=== PATIENT | female | born 1945 | race Caucasian/White ===

== ENCOUNTER → 2021-11-02 09:31 | Outpatient (CLI) | payer MEDICARE, OTHER, SELFPAY ==
--- NOTE | 2021-11-02 09:37 | DI.US.S_ITS ---
PROCEDURE: US ABDOMEN LIMITED INDICATIONS: LEFT INGUINAL LUMP; HERNIA VS LYMPH NODE TECHNIQUE: Real-time focused scanning was performed of the abdomen, with image documentation. COMPARISON: None. FINDINGS: 3.4 x 3.1 x 3.5 cm irregular cystic mass present within the left groin corresponding to the palpable abnormality which does not change with Valsalva. Doppler assessment demonstrates no internal vascularity. IMPRESSION: Cystic mass corresponding to the palpable abnormality measuring 3.5 cm of unclear etiology. If indicated, CT could be performed for further evaluation. Dictated by: Rex ATKINS Interpreted: Sanjiv Nguyen MD on 11/02/2021 at 13:02 Transcribed by: RUDDY on 11/02/2021 at 13:03 Approved by: Sanjiv Nguyen M.D. on 11/02/2021 at 20:00
== END ==
PROVIDERS: PCP Family Medicine; Referring Provider Obstetrics & Gynecology; Visit Provider Obstetrics & Gynecology
DX: R19.09 Other intra-abdominal and pelvic swelling, mass and lump (principal)
CPT/HCPCS: 76705

== ENCOUNTER → 2021-12-01 10:25 | Outpatient (CLI) | payer MEDICARE, OTHER, SELFPAY ==
--- NOTE | 2021-12-01 10:29 | DI.CT.S_ITS ---
PROCEDURE: CT ABDOMEN PELVIS W CON INDICATIONS: Left groin mass TECHNIQUE: After the administration of oral and intravenous contrast, axial sections were acquired from the lung bases to the pubic symphysis. Coronal and sagittal reformats were performed. For radiation dose reduction, the following was used: automated exposure control, adjustment of mA and/or kV according to patient size. COMPARISON:None. FINDINGS: Image quality: Excellent. Lung bases: Unremarkable. Heart: No significant findings. ABDOMEN: Liver: No intrahepatic biliary ductal dilatation or mass. The liver demonstrates hepatic steatosis. There is a 4 millimeter hypodensity in the right lobe, likely a tiny cyst. Gallbladder: Unremarkable. Biliary ducts: Unremarkable. Pancreas: Unremarkable. Spleen: Unremarkable. Adrenal Glands: Unremarkable. Kidneys and Ureters: Unremarkable. Stomach and Bowel: There is circumferential thickening of the pylorus of the stomach measuring up to 9 mm. This could be due to peristalsis versus neoplasm. Recommend endoscopy. The small bowel loops, and colon are unremarkable. Increased stool consistent with constipation. Peritoneum: No abnormal intraperitoneal fluid. No free air. Ventral Wall: No hernia. Abdominal Nodes: No retroperitoneal or mesenteric adenopathy by size criteria. Vessels: Aorta and inferior vena cava are normal in size. PELVIS: Pelvic Organs: Unremarkable. Bladder: Unremarkable. Pelvic Nodes: No enlarged lymph nodes. Miscellaneous: A fluid containing right inguinal hernia measures 1.5 cm. A fluid containing left inguinal hernia measures 3.9 cm. Bones: Multilevel degenerative changes and facet arthropathy with grade 1 anterolisthesis of L4-5. IMPRESSION: 1. Fluid containing inguinal hernias measuring 1.5 cm on the right and 3.9 cm on the left. 2. Circumferential wall thickening of the pylorus which could simply be peristalsis versus neoplasm. Recommend endoscopy. Dictated by: Benjamin Archer M.D. on 12/01/2021 at 12:43 Approved by: Benjamin Archer M.D. on 12/01/2021 at 12:52
[2021-12-01 10:59] LABS: BUN Creatinine Ratio 17.8 (6-22); Blood Urea Nitrogen 13 mg/dL (7-17); Estimated Glomerular Filt Rate > 60.0 mL/min (>60)
== END ==
PROVIDERS: PCP Family Medicine; Referring Provider Surgery; Visit Provider Surgery
DX: R19.09 Other intra-abdominal and pelvic swelling, mass and lump (principal); K40.20 Bilateral inguinal hernia, without obstruction or gangrene, not specified as recurrent
CPT/HCPCS: 36415; 74177; 82565; 84520; Q9967

== ENCOUNTER → 2022-01-04 09:20 | Outpatient (CLI) | payer MEDICARE, OTHER, SELFPAY ==
[2022-01-04 12:01] LABS: COVID19 -Nasal RAPID Negative (Negative)
== END ==
PROVIDERS: PCP Family Medicine; Visit Provider Surgery
DX: Z01.812 Encounter for preprocedural laboratory examination (principal); Z20.822 Contact with and (suspected) exposure to COVID-19
CPT/HCPCS: 87635; C9803

== ENCOUNTER 2022-01-05 06:34 | Day surgery (SDC) | payer MEDICARE, OTHER, SELFPAY ==
[2022-01-01 12:54] VITALS: BMI 19.4
[2022-01-05] VITALS (10 sets, daily range): BP systolic 122–153; BP diastolic 45–80; PULSE 72–89; RESP 11–18; TEMP 36.4–36.9; O2SAT 93–100; BMI 19.4
--- NOTE | 2022-01-05 07:13 | SUR.OPER ---
Supine on padded OR bed, head on pillow, arms secured on padded arm boards at <90 degrees abduction, legs uncrossed, safety belt at thigh, tape over blanket over lower legs.
[2022-01-05] MEDS: LACTATED RINGERS 1,000 ML 84 ML IV ×3 (07:16→11:44)
--- NOTE | 2022-01-05 07:51 | PM.HP.1 ---
History of Present Illness History of Present Illness Date Patient Seen: 01/05/22 Time Patient Seen: 07:51 Chief complaint: LAP ANNA ING HERNIA REPAIR Narrative: 76-year-old woman with a left inguinal hernia. CT suggests bilateral and she has has noticed right sided bulging recently. Patient History Medical History Detached retina H/O vaginal delivery Hemorrhoids Open-angle glaucoma Family & Social History Social History: household members spouse Tobacco & Substance use: Smoking Status Current some day smoker Substance Use Type does not use Meds Home Medications and Allergies Home Medications Medication Instructions Recorded Confirmed Type No Known Home Medications 10/12/21 01/05/22 History Allergies Allergy/AdvReac Type Severity Reaction Status Date / Time Sulfa (Sulfonamide Allergy Intermediate ITCHING Verified 01/05/22 07:24 Antibiotics) Exam Vital Signs (past 8 hours): - 01/05/22 07:28 Temperature 97.6 F Pulse Rate 72 Respiratory Rate 18 Blood Pressure 146/80 H Pulse Oximetry 97 Oxygen Delivery Method Room Air Narrative Exam Narrative: Bilateral inguinal hernia Assessment & Plan Assessment and plan (1) Left groin mass: Status: Acute Plan To OR for bilateral inguinal hernia repair with mesh COVID-19 COVID-19 status: Negative Result date/Date tested (Pos, Neg/Pending): 01/04/22 Time Spent With Patient Critical Care time: I spent a total of [] minutes of critical care time on this patient's care today; this time is exclusive of procedural time.
[2022-01-05] MEDS: CEFAZOLIN 2 GM/20 ML SYRINGE IV (08:15)
--- NOTE | 2022-01-05 11:10 | PM.OP.1 ---
Operative Date/Time/Diagnoses Date of procedure: 01/05/22 Time of procedure: 11:10 Pre-op diagnosis: Bilateral inguinal hernia Post-op diagnosis: same Procedure & Clinicians Procedure: Laparoscopic bilateral inguinal hernia repair with mesh Same procedure as scheduled: Yes Surgeon: Jatinder Johnson Anesthesia Type: General Operative Notes Findings: Left femoral and right femoral and indirect hernia Procedure in detail: The patient was given preoperative antibiotics. The patient was brought to the operating room, placed on the table in the supine position with the arms tucked and general anesthesia was induced. The abdomen was prepped and draped in the usual fashion. A time-out was performed. A 1 cm curvilinear supraumbilical incision was created and dissection was carried down to the fascia The fascia was scored transversely with cautery. A Peon clamp was used to lyons the peritoneum. The Arely port was placed and the abdomen was insufflated to 15 mmHg. The camera was inserted, there was no evidence of any injury from the entry. 5 mm ports were placed under direct vision in the mid left and mid right abdomen. The patient was positioned in steep Trendelenburg. We started on the left side. We created a left peritoneal flap. The peritoneum was dissected off of the round ligament. A left femoral hernia was reduced. The tissue was quite stuck within the femoral space and it took quite a bit of work to reduce the tissue completely. There was clear fluid that was drained once the tissue was reduced. A a large left Bard mesh was brought in and placed over the defect with the medial edge against Juan's ligament. We then closed the peritoneal flap with a running 3-0 barbed suture. Next we turned our attention to the right side. The peritoneum was dissected off the right round ligament. There was a slightly smaller right femoral hernia and a very small indirect defect. The femoral hernia was again quite stuck and took quite a bit of manipulation to reduce. A a medium right Bard mesh was brought in and placed over the defect with the medial edge against Juan's ligament. We then closed the peritoneal flap with a running 3-0 barbed suture. We took one last look around the abdomen and saw no other abnormalities. The suture was removed and accounted for. The 5 mm ports were removed under direct vision. The abdomen was desufflated. The Arely port was removed. Additional local was injected into the fascia and the infraumbilical fascial incision was closed with 2 interrupted 0 Vicryl sutures. The skin incisions were closed with 4 Monocryl, Steri-Strips and Band-Aids. Post-operative Condition: stable Disposition: PACU
[2022-01-05] MEDS: ALBUTEROL 2.5 MG/3 ML NEB (ADULT) INH (11:23)
[2022-01-05] MEDS: OXYCODONE IR 5 MG TABLET PO ×2 (11:24→11:49)
[2022-01-05] MEDS: ACETAMINOPHEN 325 MG TABLET 650 MG PO (11:24)
[2022-01-05] MEDS: ONDANSETRON 4 MG/2 ML INJ IV (11:24)
[2022-01-05] MEDS: fentaNYL 100 MCG/2 ML INJ IV (11:32)
--- NOTE | 2022-01-05 13:05 | SUR.PHASEII ---
1210 late entry Patient requested to sleep before being discharged. did not answer the phone, voicemail left. Hand-off to Aggie North RN for lunch break 1245 Late entry Patient awake, no status change per Aggie North, RN. Spouse answered his phone and is on the grounds. VS taken. RA sat 91-92%. Gave the patient an incentive spirometer and worked with her on that. Sat up to 94-95%. IV dc'd, bandaids remain CDI, belly flat.
--- NOTE | 2022-01-05 13:14 | SUR.PHASEII ---
student services director assisted patient with dressing
== END 2022-01-05 13:20 | disposition home or self-care (01) ==
PROVIDERS: PCP Family Medicine; Referring Provider Surgery; Visit Provider Surgery
PROC: 0YQ64ZZ Repair Left Inguinal Region, Percutaneous Endoscopic Approach (ICD-10-PCS; CPT 49650; principal; 2022-01-05 07:45)
DX: K40.20 Bilateral inguinal hernia, without obstruction or gangrene, not specified as recurrent (principal)
CPT/HCPCS: 49650; J0690; J1100; J2405; J2704; J3010; J7613

== ENCOUNTER → 2022-03-10 10:32 | Outpatient (CLI) | payer MEDICARE, OTHER, SELFPAY ==
[2022-03-10 11:53] LABS: COVID19 -Nasal RAPID Negative (Negative)
== END ==
PROVIDERS: PCP Family Medicine; Visit Provider Surgery
DX: Z20.822 Contact with and (suspected) exposure to COVID-19 (principal); Z01.812 Encounter for preprocedural laboratory examination
CPT/HCPCS: 87635; C9803

== ENCOUNTER 2022-03-11 09:05 | Day surgery (SDC) | payer MEDICARE, OTHER, SELFPAY ==
--- NOTE | 2022-03-11 | PATH_ITS ---
[facility] Accession Number: [id number] . 01 Material submitted: . colon - SIGMOID COLON POLYPS . 01 Diagnosis: Sigmoid Colon, Polyps, Biopsies: Hyperplastic polyps. JNL 03/12/2022 1223 Local . 01 Electronically signed: . Daily Dorantes MD, Pathologist NPI- [id number] . 01 Gross description: . SIGMOID COLON POLYPS: Received in formalin are 2 fragment(s) of wu, soft tissue measuring 0.5 x 0.2 x 0.2 cm to 0.4 x 0.3 x 0.2 cm submitted entirely in 1 cassette(s) /CPE 03/12/2022 0254 Local . 01 Pathologist provided ICD-10: K63.5 . 01 CPT . 574639 Specimen Comment: A courtesy copy of this report has been sent to [phone] Performed at: 01 [facility] [address] [place] [address], [place], [place] [id number] MD Pepito Solorzano MD Phone: [phone]
[2022-03-11 09:18] VITALS: BP 159/89; PULSE 79; RESP 15; TEMP 36.6; O2SAT 99; BMI 19.9
[2022-03-11] MEDS: LACTATED RINGERS 1,000 ML 150 ML IV (09:34)
--- NOTE | 2022-03-11 10:18 | PM.HP.1 ---
History of Present Illness History of Present Illness Date Patient Seen: 03/11/22 Time Patient Seen: 10:18 [place] [facility] [place]ative: Vy is here for her colonoscopy. She believes her last colonoscopy was in the s. Her small seromas after her hernia repair have resolved now completely. Patient History Medical History Detached retina H/O vaginal delivery Hemorrhoids Open-angle glaucoma Family & Social History Social History: household members spouse Tobacco & Substance use: Tobacco type cigarettes Smoking Status Current some day smoker alcohol intake current alcohol intake frequency holiday/special occasion Substance Use Type does not use Meds Home Medications and Allergies Home Medications Medication Instructions Recorded Confirmed Type hydrocodone 7.5 mg-acetaminophen 1 tab PO Q8H PRN pain #10 tabs 01/05/22 03/11/22 Rx 325 mg tablet sodium sul 1.479 gram-potas ch See Rx Instructions PO PER PKG DIR 03/04/22 Rx 0.188 gram-magnes sul 0.225 gram #24 tabs tablet (Sutab) Allergies Allergy/AdvReac Type Severity Reaction Status Date / Time Sulfa (Sulfonamide Allergy Intermediate ITCHING Verified 03/11/22 09:23 Antibiotics) Exam Vital Signs (past 8 hours): - 03/11/22 09:18 Temperature 97.9 F Pulse Rate 79 Respiratory Rate 15 Blood Pressure 159/89 H Pulse Oximetry 99 Oxygen Delivery Method Room Air Oxygen Delivery Method Room Air Const General: healthy appearing Resp Effort & Inspection: normal respiratory effort Assessment & Plan Assessment and plan (1) History of colon polyps: Status: Acute Plan Plan for colonoscopy. Reviewed the risks and benefits and she would like to proceed. COVID-19 COVID-19 status: Negative Result date/Date tested (Pos, Neg/Pending): 03/10/22 Time Spent With Patient Critical Care time: I spent a total of [] minutes of critical care time on this patient's care today; this time is exclusive of procedural time.
[2022-03-11] MEDS: MIDAZOLAM 5 MG/5 ML VIAL IV (10:46)
[2022-03-11] MEDS: fentaNYL 250 MCG/5 ML INJ 125 MCG IV (10:46)
[2022-03-11 11:05] VITALS: BP 85/40; PULSE 67; RESP 11; TEMP 37; O2SAT 93
[2022-03-11 11:08] VITALS: BP 86/43; PULSE 64; RESP 12; O2SAT 93
[2022-03-11 11:09] VITALS: BP 87/46; PULSE 64; RESP 11; O2SAT 92
--- NOTE | 2022-03-11 11:09 | P.OP.COLON_ITS ---
Operative Date/Time/Diagnoses Date of procedure: 03/11/22 Time of procedure: 11:09 Pre-op diagnosis: Colon cancer screening Post-op diagnosis: same Procedure & Clinicians Study performed: Colonoscopy Surgeon: Jatinder Johnson Procedure Notes Procedure in detail: Surgeon: Jatinder Johnson MD Procedure: The patient was brought to the endoscopy suite, placed in left lateral decubitus position. The patient was connected to monitoring devices. A time-out was performed. Sedation was administered. Once the patient was a dequately sedated, a digital rectal exam was performed and was normal. The scope was then inserted and advanced to the cecum where the appendiceal orifice was identified and photographed. The scope was then slowly withdrawn over greater than 6 minutes. The mucosa was thoroughly inspected. There were 2 3 mm polyps in the sigmoid colon which were removed with cold forceps. The scope was retroflexed in the rectum. No abnormalities were noted in the distal rectum. The scope was straightened and removed. The patient was awakened and brought to recovery. Versed: 5 mg Fentanyl: 125 mcg EBL: 2 mL Findings: 2 3 mm polyps in the sigmoid colon Scope withdrawal time: 12 Sedation minutes: 23 Post-procedure Recommendations: Will call with biopsy results Disposition: PACU
[2022-03-11 11:15] VITALS: BP 113/63; PULSE 69; RESP 14; RESP 15; O2SAT 95; O2SAT 96
[2022-03-11 11:19] VITALS: BP 117/68; PULSE 72; RESP 17; TEMP 37.1; O2SAT 97
== END 2022-03-11 11:38 | disposition home or self-care (01) ==
PROVIDERS: PCP Family Medicine; Referring Provider Surgery; Visit Provider Surgery
PROC: 0DJD8ZZ Inspection of Lower Intestinal Tract, Via Natural or Artificial Opening Endoscopic (ICD-10-PCS; CPT 45378; principal; 2022-03-11 10:30)
DX: Z12.11 Encounter for screening for malignant neoplasm of colon (principal); Z86.010 Personal history of colon polyps; K63.5 Polyp of colon; F17.200 Nicotine dependence, unspecified, uncomplicated
CPT/HCPCS: 45380; 99152; J2250; J3010